=== PATIENT | female | born 1985 ===

== ENCOUNTER 2025-01-19 10:02 | Outpatient (AMB) | payer OTHER, SELFPAY ==
--- NOTE | 2025-01-19 10:04 | A.OFFPC_ITS ---
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 Car Sweeper Required: No Car Sweeper Name: Doctor speaks emirati Accompanied by: Self / Same As Patient Allergies No Known Allergies Allergy (Verified 01/19/25 10:08) Medication List - Last Reconciled 01/19/25 by Stanislav Narayanan MD No Known Home Meds Tobacco use date assessed: 01/19/25 Dental Screening Dental Screen Date: 01/19/25 Did you have a dental visit in the last 12 months?: No Did you have a dental problem in the last 6 months where you did not have access to dental care?: No Was dental information given to patient?: Patient has dentist HPI HPI Comments History of Present Illness Details History of Present Illness The patient is a 39 year old individual presenting for a new patient comprehensive evaluation. Health Maintenance: This is a new patient encounter for a comprehensive evaluation, and baseline health screenings are planned. Nasal Congestion: The patient reports experiencing nasal congestion, particularly at night. Surgical History: - The patient denies any history of surg eries, including section. Social History: - Tobacco Use: The patient denies smokin g. - Alcohol Use: The patient reports occas ional alcohol consumption. - Marital Status: The patient is . Family History: - The patient denies any family history of cancer among the patient's mother, father, or siblings. Past Medical History - The patient denies any significant pas t medical history. Health Maintenance - Laboratory studies will be ordered, in cluding cholesterol and triglycerides. - An order for a mammogram will be provi ded. - A follow-up appointment is scheduled i n two weeks to discuss the results of the comprehensive evaluation. [facility] Medical History (Updated 01/19/25 @ 11:02 by Stanislav Narayanan MD) Class 1 obesity delivery delivered Family History (Updated 01/19/25 @ 10:11 by Gurjit Cortez CMA) Father Hypertension Mother Hypertension Social History (Updated 01/19/25 @ 10:11 by Gurjit Cortez CMA) Housing: House Alcohol intake: current Comment: rarely/ on special ocassion Patient Tobacco Use Status: Never used Tobacco e-Cigarette/Vaping Use: Never Used Second Hand Smoke Exposure: No service: No Current occupational status: unemployed Current occupational exposures/hazards: No Cognitive needs: No Hearing needs: No Vision needs: No Questionnaire PHQ-9 Over the last 2 weeks, how often have you been bothered by any of the following problems? 1. Little interest or pleasure in doing things: not at all 2. Feeling down, depressed, or hopeless: not at all 3. Trouble falling or staying asleep, or sleeping too much: not at all 4. Feeling tired or having little energy: not at all 5. Poor appetite or overeating: not at all 6. Feeling bad about yourself - or that you are a failure or have let yourself or your family down: not at all 7. Trouble concentrating on things, such as reading the newspaper or watching television: not at all 8. Moving or speaking so slowly that other people could have noticed. Or the opposite - being so fidgety or restless that you have been moving around a lot more than usual: not at all 9. Thoughts that you would be better off or of hurting yourself in some way: not at all Total score: 0 Depression Screening Interpretation: Negative Depression Screening Done: Yes 08538 - PHQ-9 Billing: Yes Source: Developed by Drs. Chu Hathaway, Cheyanne Chaparro, Fidel Miller and colleagues, with an educational thomas from [employer]. Thrive Questionnaire Date Thrive assessed: 01/19/25 I am a: Patient What is your living situation today?: I have a steady place to live Within the past 12 months, did the food you bought not last and you didn't have the money to get more?: Never true Within the past 12 months, did you worry whether your food would run out before you got money to buy more?: Never true Do you have trouble paying for medicines?: No Do you have trouble getting transportation to medical appointments?: No Do you have trouble paying your heating and electricity bill?: No Do you have trouble taking care of your child, family member or friend?: No Are you currently unemployed and looking for a job?: No Are you interested in more education?: Yes Please select the resources that you would like help with: None Currently or been in a relationship where the following occur: No concerns reported THRIVE Score: 0 AUDIT C Alcohol Use Questionnaire (AUDIT-C) 1. How often do you have a drink containing alcohol?: Never Total Score: 0 WELLINGTON-7 AMB Questionnaire WELLINGTON-7 Date WELLINGTON - 7 assessed: 01/19/25 Feeling nervous, anxious, or on edge: 0 = Not at all Not being able to stop or control worryin = Not at all Worrying too much about different things: 0 = Not at all Trouble relaxin = Not at all Being so restless that it is hard to sit still: 0 = Not at all Becoming easily annoyed or irritable: 0 = Not at all Feeling afraid as if something awful might happen: 0 = Not at all Total WELLINGTON-7 score (0-4 normal; 5-9 mild; 10-14 moderate; 15-21 severe): 0 Source: Developed by Drs. Chu Hathaway, Cheyanne Chaparro, Fidel Miller and colleagues, with an educational thomas from [employer]. WELLINGTON-7 Assessment Billing WELLINGTON-7 Assessment Tool: WELLINGTON-7 Assessment 77401 Review of Systems Narrative Review of Systems - HEENT: Reports nasal congestion at night. - Denies throat discomfort. - Neurological: Reports occasional sleep disturbances. 10-point ROS reviewed and negative except as noted in HPI Physical exam (Primary Care) Vital Signs: Last Vital Signs Temp 98 F 01/19/25 10:12 Pulse 76 01/19/25 10:12 Resp 16 01/19/25 10:12 BP 112/51 L 01/19/25 10:12 Pulse Ox 98 01/19/25 10:12 Oxygen Delivery Method Room Air 01/19/25 10:12 BMI result Body Mass Index 30.3 Tobacco/Smoking Status: Tobacco use Status Tobacco use date assessed 01/19/25 01/19/25 10:14 Patient Tobacco Use Status Never used Tobacco 01/19/25 10:14 e-Cigarette/Vaping Use Never Used 01/19/25 10:14 PHQ-9: PHQ-9 Score PHQ-9: Total score 0 01/19/25 10:14 Depression Screening Interpretation: Negative Thrive Assessment: Date of Thrive Assessment Date Thrive assessed 01/19/25 01/19/25 10:14 Currently or been in a relationship where the following occur: No concerns reported Narrative Physical Exam General: Well-appearing, in no acute distress. Vital signs: Within normal limits. HEENT: Normocephalic, atraumatic. PERRLA, EOMI. Conjunctiva clear, sclera anicteric. Oropharynx clear, mucous membranes moist. TMs intact bilaterally. Noted congestion at night. Neck: Supple, no lymphadenopathy, no thyromegaly, no JVD or carotid bruits. Cardiovascular: RRR, normal S1/S2, no murmurs, rubs, or gallops. Peripheral pulses 2+ and symmetric. No edema. Respiratory: Lungs clear to auscultation bilaterally, no wheezes, rales, or rhonchi. Normal effort. Abdomen: Soft, non-tender, non-distended. Normoactive bowel sounds. No hepatosplenomegaly, no masses. MSK: Full range of motion, no joint swelling or deformity. Normal gait. Skin: Warm, dry, intact. No rashes, lesions, or pallor. Neuro: Alert and oriented x3. Cranial nerves II-XII intact. Strength 5/5 throughout. Sensation intact. Reflexes 2+ symmetric. Normal coordination and gait. Psych: Appropriate mood and affect. Normal judgment and insight. Coding Level of Care Code New Pt Level 4 (51808) Diagnoses Regular check-up Z00.00 Class 1 obesity E66.811 Encounter for screening mammogram for breast cancer Z12. Nasal congestion R09.81 Allergic rhinitis J30.9 Additional Codes WELLINGTON-7 Assessment Billing - WELLINGTON-7 Assessment Tool: WELLINGTON-7 Assessment 11522 ([id number]) PHQ-9 - 40296 - PHQ-9 Billing: Yes ([id number]) Assessment & Plan Assessment & Plan (1) Regular check-up: Code(s): Z00.00 - Encounter for general adult medical examination without abnormal findings (2) Class 1 obesity: Code(s): E66.811 - Obesity, class 1 Category: Medical (3) Encounter for screening mammogram for breast cancer: Code(s): Z12.31 - Encounter for screening mammogram for malignant neoplasm of breast (4) Nasal congestion: Code(s): R09.81 - Nasal congestion (5) Allergic rhinitis: Code(s): J30.9 - Allergic rhinitis, unspecified Plan Consent Patient was informed and verbally consented to the use of an ambient scribe for clinic note documentation during this visit. Plan 1. Nasal Congestion - The patient's report of nocturnal nasal congestion was noted. 2. Sleep Disturbance - The patient's report of occasional sleep disturbance was noted. Discussion Notes I informed the patient that this initial visit would be a comprehensive evaluation rather than a standard physical. We will proceed with drawing blood for cholesterol and triglyceride levels and arranging for a mammogram. A follow- up appointment will be scheduled in two weeks to sit down and discuss all the findings in detail. Patient Instructions - You will need to have your blood drawn - You have been given an order for a mammogram. - Please return to the clinic in two weeks to discuss your test results. Medical Decision Making This 39-year-old individual presented for a new patient visit, requesting a physical. The decision was made to perform a comprehensive evaluation to establish care, obtain baseline history, and conduct appropriate health maintenance screenings. History is negative for smoking, surgeries, and family history of cancer, with occasional alcohol use reported. The patient noted occasional sleep disturbances and nocturnal nasal congestion. To establish a baseline health status, screening labs including a lipid panel and a mammogram are indicated. A follow-up visit in two weeks is crucial for a detailed discussion of all results and to formulate a long-term health plan. Total Time Statement 30 min Total time spent caring for the patient today includes pre-visit chart review, documentation, review of laboratory and diagnostic imaging results, medication reconciliation, medically necessary evaluation, counseling on diagnoses, care coordination, ordering appropriate tests and medications, review of tests performed by other providers, reporting test results to the patient, and communication with other healthcare providers. Orders: Orders Syphilis Screen Today Z13.9 - Encounter for screening, unspecified Comprehensive Met. Panel Today Z13.9 - Encounter for screening, unspecified Hepatitis C Antibody Today Z13.9 - Encounter for screening, unspecified TSH reflex Free T4 Today Z13.9 - Encounter for screening, unspecified HIV Ab/Ag Today Z13.9 - Encounter for screening, unspecified Vitamin B12 and Folate Today Z13.9 - Encounter for screening, unspecified Hemoglobin A1c Today Z13.9 - Encounter for screening, unspecified Magnesium Today Z13.9 - Encounter for screening, unspecified Hepatitis B Surface Antibody Today Z13.9 - Encounter for screening, unspecified MM screening mammo BI Today Z13.9 - Encounter for screening, unspecified Complete Blood Count Auto Diff Today Z13.9 - Encounter for screening, unspecified Hepatitis B Surface Antigen Today Z13.9 - Encounter for screening, unspecified UA CC w/rflx Micro + Cult Today Z13.9 - Encounter for screening, unspecified Lipid Panel Today Z13.9 - Encounter for screening, unspecified Vitamin D 1,25 dihydroxy Today Z13.9 - Encounter for screening, unspecified Medications: New azelastine administer into each nostril 2 sprays intranasal BID 30 mL 0RF J30.9 - Allergic rhinitis, unspecified
[2025-01-19 10:12] VITALS: BP 112/51; PULSE 76; RESP 16; TEMP 36.6; O2SAT 98; BMI 30.3
--- OUTSIDE RECORDS SUMMARY | 2025-01-19 12:03 | XMS_ITS ---
Author Name [facility] Organization Unknown Care Team Organization Name Specialty Phone Email Start Date End Da te [facility] Termed, PROVIDER Primary Care 01/03/202209/26
== END 2025-01-19 10:31 | disposition home or self-care (01) ==
LOC: HO.HMCFMS 10:02
PROVIDERS: PCP Student in an Organized Health Care Education/Training Program; Visit Provider Student in an Organized Health Care Education/Training Program
DX: Z00.00 Encounter for general adult medical examination without abnormal findings (principal); E66.811 Obesity, class 1; Z12.31 Encounter for screening mammogram for malignant neoplasm of breast; R09.81 Nasal congestion; J30.9 Allergic rhinitis, unspecified

== ENCOUNTER 2025-01-19 10:02 | Outpatient (REF) | payer OTHER, SELFPAY ==
[2025-01-19 13:05] LABS: MANUAL DIFF FLAG NO
[2025-01-19 13:15] LABS: Hematocrit 39.8 % (37.0-47.0); Hemoglobin 12.7 g/dl (12.0-16.0); Imm Gran Abs Auto 0.04 X10*3/uL (0.00-0.03); Imm Gran Pct Auto 0.5 % (0.0-0.4); Lymphocytes Absolute Auto 3.3 X10*3/uL (1.2-4.9); Mean Corpuscular HGB Conc 31.9 g/dl (31.0-35.0); Mean Corpuscular Hemoglobin 29.1 pg (27.0-33.0); Mean Corpuscular Volume 91.1 fL (80.0-98.0); NRBC Abs Auto 0.000 X10*3/uL (0.0-0.012); NRBC Pct Auto 0.0 /100WBC (0.0-0.2); Platelet Count 305 X10*3/uL (160-400); Red Blood Count 4.37 X10*6/uL (4.20-5.50); White Blood Count 8.1 X10*3/uL (4.8-10.8)
[2025-01-19 13:17] LABS: Appearance Urine Clear; Glucose Urine UA Negative (Negative); PH 5.5 (5.0-9.0); Specific Gravity - Urine 1.020 (1.005-1.025)
[2025-01-19 14:54] LABS: Folate 9.8 ng/mL (> or = 4.0); Vitamin B12 313 pg/mL (200-900)
[2025-01-19 15:43] LABS: Alanine Aminotransferase 36 U/L (0-31); Albumin Level 4.3 g/dL (3.5-5.0); Alkaline Phosphatase 80 U/L (39-117); Anion Gap 10 (12-20); Aspartate Amino Transferase 31 U/L (5-31); Blood Urea Nitrogen 12 mg/dL (9-16); Calcium 9.3 mg/dL (8.4-10.2); Carbon Dioxide 27 mmol/L (22-29); Chloride 106 mmol/L (96-108); Cholesterol 185 mg/dL (<200); Estimated Glomerular Filt Rate > 60; HDL Cholesterol 47 mg/dL (>40); Magnesium 2.2 mg/dL (1.6-2.6); Potassium 3.9 mmol/L (3.3-5.1); Sodium 139 mmol/L (135-145); Total Protein 7.7 g/dL (6.5-8.0); Triglycerides 122 mg/dL (<150)
[2025-01-20 04:39] LABS: Syphilis Screen Nonreactive (Nonreactive)
[2025-01-20 04:52] LABS: HBS Num1 0.79 mIU/mL (0-7.99); HBsAGNum1 0.34 S/CO (0.00-0.99); HIV Num 1 0.08 S/CO (0.00-0.99); Hepatitis B Surface Antigen Negative (Negative); ~HepC Num1 0.20 S/CO (0.00-0.79); ~Hepatitis B Surface Antibody NONREACTIVE (Nonreactive); ~Hepatitis C Antibody Nonreactive (Nonreactive)
[2025-01-23 15:33] LABS: VITAMIN D (1,25 OH) D3 44 pg/mL; Vit D (1,25-Dihydroxy) Total 44 pg/mL (18-72); Vitamin D (1,25 OH) D2 <8 pg/mL
== END 2025-01-19 10:03 | disposition home or self-care (01) ==
LOC: HO.HKASLDS 10:02
PROVIDERS: PCP Student in an Organized Health Care Education/Training Program; Visit Provider Student in an Organized Health Care Education/Training Program
DX: Z00.00 Encounter for general adult medical examination without abnormal findings (principal); Z13.9 Encounter for screening, unspecified; Z12.31 Encounter for screening mammogram for malignant neoplasm of breast; E66.811 Obesity, class 1; R09.81 Nasal congestion; J30.9 Allergic rhinitis, unspecified
CPT/HCPCS: 36415; 80053; 80061; 81003; 82607; 82652; 82746; 83036; 83735; 84443; 85025; 86706; 86780; 86803; 87340; 87389

== ENCOUNTER 2025-02-05 09:55 | Outpatient (AMB) | payer OTHER, SELFPAY ==
--- NOTE | 2025-02-05 10:00 | MHC.PC.OV ---
Vital Signs 02/05/25 10:01 BP 114/66 Blood Pressure Location Rt brachial Position Sitting Pulse 77 Pulse Source Pulse Oximeter Temp 97 F Temp Source Oral Pulse Oximetry (%) 98 Oxygen Delivery Method Room Air Intake Visit Reasons: 2 week follow up [place] Refinisher Name: Provider speaks malay Accompanied by: Self / Same As Patient Allergies No Known Allergies Allergy (Verified 02/05/25 10:02) Medication List - Last Reconciled 02/05/25 by Stanislav Narayanan MD azelastine 2 sprays intranasal BID Tobacco use date assessed: 02/05/25 Dental Screening Dental Screen Date: 02/05/25 HPI HPI Comments History of Present Illness Details History of Present Illness The patient is a 39 year old female presenting for review of lab results. Dyslipidemia: The patient's lab results showed a slightly elevated LDL cholesterol of 114 mg/dL, with a target of under 100 mg/dL. The bloodwork was not performed in a fasting state. Her total cholesterol is low, triglycerides are very good, and HDL cholesterol is fine at above 40. Surgical History: - No prior surgical history was discussed. Medications: - No current medications were discussed. Social History: - Caffeine Use: The patient reports drinking coffee, which was consumed before her blood draw. Family History: - No family history was discussed. Diagnostic Results: - Lab Results (Non-fasting): - CBC: White blood cell count and red blood cell count are normal. - Platelets: Normal. - Hemoglobin/Hematocrit: Normal. - BMP: Sodium and potassium are normal. - Renal function: Appears very good. - Glucose: Normal; the patient is not prediabetic or diabetic. - Magnesium: Normal. - Liver function: Normal. - Lipid Panel: - Triglycerides: Very good. - Total Cholesterol: Low. - LDL Cholesterol: 114 mg/dL (slightly elevated). - HDL Cholesterol: Fine, above 40. - Vitamin B12: Fine. - Vitamin D: Fine. - Folate: Fine. - Thyroid function: Fine. - Urinalysis: Fine. - Infectious Disease Screening: Negative for Syphilis, Hepatitis B, Hepatitis C, and HIV. Past Medical History - No past medical history was discussed. Health Maintenance - The patient was referred for a mammogram and is awaiting a call to schedule the appointment. - Lab results reviewed, confirming she is healthy. - Follow-up is recommended in six months or one year, as per the patient's preference, or sooner if needed. [facility] Medical History (Updated 02/05/25 @ 21:54 by Stanislav Narayanan MD) Dyslipidemia Class 1 obesity delivery delivered Family History Father Hypertension Mother Hypertension Social History Housing: House Alcohol intake: current Comment: rarely/ on special ocassion Patient Tobacco Use Status: Never used Tobacco e-Cigarette/Vaping Use: Never Used Second Hand Smoke Exposure: No service: No Current occupational status: unemployed Current occupational exposures/hazards: No Cognitive needs: No Hearing needs: No Vision needs: No Questionnaire PHQ-9 Over the last 2 weeks, how often have you been bothered by any of the following problems? 1. Little interest or pleasure in doing things: not at all 2. Feeling down, depressed, or hopeless: not at all 3. Trouble falling or staying asleep, or sleeping too much: not at all 4. Feeling tired or having little energy: not at all 5. Poor appetite or overeating: not at all 6. Feeling bad about yourself - or that you are a failure or have let yourself or your family down: not at all 7. Trouble concentrating on things, such as reading the newspaper or watching television: not at all 8. Moving or speaking so slowly that other people could have noticed. Or the opposite - being so fidgety or restless that you have been moving around a lot more than usual: not at all 9. Thoughts that you would be better off or of hurting yourself in some way: not at all Total score: 0 Depression Screening Interpretation: Negative Depression Screening Done: Yes 86453 - PHQ-9 Billing: Yes Source: Developed by Drs. Chu Hathaway, Cheyanne Chaparro, Fidel Miller and colleagues, with an educational thomas from [employer]. Thrive Questionnaire Date Thrive assessed: 02/05/25 I am a: Patient What is your living situation today?: I have a steady place to live Within the past 12 months, did the food you bought not last and you didn't have the money to get more?: Never true Within the past 12 months, did you worry whether your food would run out before you got money to buy more?: Never true Do you have trouble paying for medicines?: No Do you have trouble getting transportation to medical appointments?: No Do you have trouble paying your heating and electricity bill?: No Do you have trouble taking care of your child, family member or friend?: No Are you currently unemployed and looking for a job?: No Are you interested in more education?: Yes Please select the resources that you would like help with: None Currently or been in a relationship where the following occur: No concerns reported THRIVE Score: 0 AUDIT C Alcohol Use Questionnaire (AUDIT-C) 1. How often do you have a drink containing alcohol?: Never Total Score: 0 WELLINGTON-7 AMB Questionnaire WELLINGTON-7 Date WELLINGTON - 7 assessed: 02/05/25 Feeling nervous, anxious, or on edge: 0 = Not at all Not being able to stop or control worryin = Not at all Worrying too much about different things: 0 = Not at all Trouble relaxin = Not at all Being so restless that it is hard to sit still: 0 = Not at all Becoming easily annoyed or irritable: 0 = Not at all Feeling afraid as if something awful might happen: 0 = Not at all Total WELLINGTON-7 score (0-4 normal; 5-9 mild; 10-14 moderate; 15-21 severe): 0 Source: Developed by Drs. Chu Hathaway, Cheyanne Chaparro, Fidel Miller and colleagues, with an educational thomas from [employer]. WELLINGTON-7 Assessment Billing WELLINGTON-7 Assessment Tool: WELLINGTON-7 Assessment 33276 Review of Systems Narrative Review of Systems - All systems reviewed are negative except as detailed in the history of present illness. 10-point ROS reviewed and negative except as noted in HPI Physical exam (Primary Care) Vital Signs: Last Vital Signs Temp 97 F 02/05/25 10:01 Pulse 77 02/05/25 10:01 BP 114/66 02/05/25 10:01 Pulse Ox 98 02/05/25 10:01 Oxygen Delivery Method Room Air 02/05/25 10:01 Tobacco/Smoking Status: Tobacco use Status Tobacco use date assessed 02/05/25 02/05/25 10:04 Patient Tobacco Use Status Never used Tobacco 02/05/25 10:04 e-Cigarette/Vaping Use Never Used 02/05/25 10:04 PHQ-9: PHQ-9 Score PHQ-9: Total score 0 02/05/25 10:04 Depression Screening Interpretation: Negative Thrive Assessment: Date of Thrive Assessment Date Thrive assessed 02/05/25 02/05/25 10:04 Currently or been in a relationship where the following occur: No concerns reported Narrative Physical Exam General: Well-appearing, in no acute distress. Vital signs: Within normal limits. HEENT: Normocephalic, atraumatic. PERRLA, EOMI. Conjunctiva clear, sclera anicteric. Oropharynx clear, mucous membranes moist. TMs intact bilaterally. Neck: Supple, no lymphadenopathy, no thyromegaly, no JVD or carotid bruits. Cardiovascular: RRR, normal S1/S2, no murmurs, rubs, or gallops. Peripheral pulses 2+ and symmetric. No edema. Respiratory: Lungs clear to auscultation bilaterally, no wheezes, rales, or rhonchi. Normal effort. Abdomen: Soft, non-tender, non-distended. Normoactive bowel sounds. No hepatosplenomegaly, no masses. MSK: Full range of motion, no joint swelling or deformity. Normal gait. Skin: Warm, dry, intact. No rashes, lesions, or pallor. Neuro: Alert and oriented x3. Cranial nerves II-XII intact. Strength 5/5 throughout. Sensation intact. Reflexes 2+ symmetric. Normal coordination and gait. Psych: Appropriate mood and affect. Normal judgment and insight. Coding Level of Care Code Est Pt Level 3 (58148) Add On Problem Visit Only Diagnoses Class 1 obesity E66.811 Dyslipidemia E78.5 Additional Codes WELLINGTON-7 Assessment Billing - WELLINGTON-7 Assessment Tool: WELLINGTON-7 Assessment 76337 ([id number]) PHQ-9 - 19119 - PHQ-9 Billing: Yes ([id number]) Assessment & Plan Assessment & Plan (1) Class 1 obesity: Code(s): E66.811 - Obesity, class 1 Category: Medical (2) Dyslipidemia: Code(s): E78.5 - Hyperlipidemia, unspecified Category: Medical Plan Consent No consent was obtained as no procedures were performed. Patient was informed and verbally consented to the use of an ambient scribe for clinic note documentation during this visit. Plan 1. Wellness Visit - The patient's lab results were reviewed and showed overall good health. - The patient was instructed to schedule a follow-up appointment in six months or one year, as she prefers, or sooner if any issues arise. 2. Dyslipidemia - The patient's LDL cholesterol was noted to be slightly elevated at 114 mg/dL. - This is not concerning at this time because the blood test was done in a non-fasting state. - The plan is to continue monitoring, with repeat labs at the next visit. 3. Preventative Care: Mammogram - A referral for a mammogram was previously provided. - The patient has not yet been contacted to schedule the appointment. - The patient was advised to call the facility again to schedule her mammogram and was given the phone number. Discussion Notes I reviewed the patient's comprehensive lab results with her, which were all within normal limits, confirming her good health. We discussed that her LDL cholesterol was slightly elevated at 114, but I explained this was not concerning as the test was not done while fasting. Regarding her pending mammogram, I advised her to proactively call the facility to schedule it, as she has not received a call back in two weeks. I recommended she follow up in six months or a year, based on her preference, or to schedule an appointment sooner if any concerns arise. Patient Instructions - Your lab results are normal, and you are in good health. - Your bad cholesterol (LDL) is a little high, but this is likely because you were not fasting for the test, so it is not a concern right now. - Please call the imaging center to schedule your mammogram, as they have not called you back yet. We will give you the phone number again. - You should return for a follow-up visit in six months to a year, whichever you prefer. - If anything comes up before then, please call to make an appointment. Medical Decision Making The patient is a 39-year-old female who presented for a review of her recent lab work. The comprehensive panel, including CBC, BMP, liver function, thyroid, and infectious disease screens, was reassuringly normal. Her LDL cholesterol was slightly elevated at 114 mg/dL; however, given that the sample was non-fasting and other lipid parameters like total cholesterol and triglycerides were low and good, respectively, this is not clinically concerning at this time. The patient is pending a routine mammogram and was advised to follow up on scheduling. Given her overall healthy status, a routine follow-up in 6 to 12 months is appropriate, with instructions to return sooner if any issues arise. Total Time Statement 20 min Total time spent caring for the patient today includes pre-visit chart review, documentation, review of laboratory and diagnostic imaging results, medication reconciliation, medically necessary evaluation, counseling on diagnoses, care coordination, ordering appropriate tests and medications, review of tests performed by other providers, reporting test results to the patient, and communication with other healthcare providers.
[2025-02-05 10:01] VITALS: BP 114/66; PULSE 77; TEMP 36.1; O2SAT 98
== END 2025-02-05 10:08 | disposition home or self-care (01) ==
LOC: HO.HMCFMS 09:56
PROVIDERS: Visit Provider Student in an Organized Health Care Education/Training Program
DX: E66.811 Obesity, class 1 (principal); E78.5 Hyperlipidemia, unspecified

== ENCOUNTER → 2025-02-05 09:55 | Outpatient (BNVA) | payer OTHER, SELFPAY | PROVIDERS: Visit Provider Student in an Organized Health Care Education/Training Program | DX: Z71.2 Person consulting for explanation of examination or test findings (principal); E78.5 Hyperlipidemia, unspecified; E66.811 Obesity, class 1; Z13.31 Encounter for screening for depression; Z13.39 Encounter for screening examination for other mental health and behavioral disorders | CPT/HCPCS: 96127; 99212 ==